=== PATIENT | female | born 1980 | race Hispanic/Latino ===

== ENCOUNTER 2021-03-11 11:40 | Emergency (ER) | payer OTHER ==
[~2021-03-11] VITALS: Ht 152.4 cm; Wt 59.0 kg
[2021-03-11 11:43] VITALS: BP 108/56
[2021-03-11 13:10] LABS: BASOPHILS % (AUTO) 0.3 % (0.0-5.0); EOSINOPHILS % (AUTO) 0.1 % (0.0-8.0); HEMATOCRIT 40.4 % (36-48); LYMPHOCYTES % (AUTO) 8.2 % (21.0-51.0); MEAN CORPUSCULAR HEMOGLOBIN 27.9 pg (27.0-33.0); MEAN CORPUSCULAR HGB CONC 32.4 g/dL (32.0-36.0); MONOCYTES % (AUTO) 2.3 % (3.0-13.0); NEUTROPHILS % (AUTO) 88.7 % (40.0-77.0); PLATELET COUNT (AUTO) 364 K/uL (130-400); RED CELL DISTRIBUTION WIDTH 13.3 % (11.0-15.5); WHITE BLOOD COUNT (AUTO) 16.3 K/uL (4.8-10.8)
[2021-03-11 13:19] LABS: CREATININE 0.8 mg/dL (0.5-1.5); POTASSIUM 3.4 mmol/L (3.5-5.1)
[2021-03-11 13:23] LABS: ALBUMIN 3.8 g/dL (3.5-5.0); APPEARANCE,URINE CLOUDY (CLEAR); BILIRUBIN,TOTAL 0.2 mg/dL (0.2-1.0); BILIRUBIN,URINE NEGATIVE (NEGATIVE); COLOR,URINE YELLOW (YELLOW); GLUCOSE, URINE (UA) NEGATIVE (NEGATIVE); KETONES,URINE NEGATIVE (NEGATIVE); LEUKOCYTE ESTERASE ,URINE TRACE (NEGATIVE); NITRATE,URINE NEGATIVE (NEGATIVE); OCCULT BLOOD,URINE LARGE (NEGATIVE); PROTEIN,URINE 30 mg/dL (NEGATIVE); TOTAL PROTEIN, SERUM 7.9 g/dL (6.0-8.3); UROBILINOGEN,URINE 0.2 mg/dL (0.2-1.0)
[2021-03-11 13:26] LABS: AMORPHOUS SEDIMENT,UR Moderate /LPF (None Seen); BACTERIA,URINE Rare /HPF (None Seen); MUCUS,URINE Few LPF (None Seen); SQUAMOUS EPITHELIAL CELL,UR Rare /HPF (0-2); WBC,URINE 0-1 /HPF (0-1)
[2021-03-11] MEDS ORDERED: 0.9%NACL 1000ML 1,000 ML IV ONE (13:30)
[2021-03-11] MEDS ORDERED: LIDOCAINE HCL 2% VISCOUS 15 ML UDCUP ONE (13:46)
[2021-03-11] MEDS ORDERED: FAMOTIDINE 20MG TAB ONE (13:46)
[2021-03-11] MEDS ORDERED: MAG/ALUM/SIMETH 30 ML UDCUP ONE (13:46)
[2021-03-11] MEDS ORDERED: ONDANSETRON ODT 4MG TAB ONE (13:47)
[2021-03-11] MEDS ORDERED: DICYCLOMINE HCL 10 MG/5 ML ML PO ONE ×2 (13:47→15:00)
[2021-03-11] MEDS ORDERED: MORPHINE 4 MG SYG ONE (13:47)
[2021-03-11] MEDS ORDERED: CEFTRIAXONE 1G VIAL ONE (13:47)
[2021-03-11 14:00] VITALS: BP 122/65
[2021-03-11] MEDS ORDERED: DICY20TA2 PO (14:49)
[2021-03-11] MEDS ORDERED: CEPH500B PO (14:49)
[2021-03-11] MEDS ORDERED: FAMO20TA8 PO (14:49)
[2021-03-11] MEDS ORDERED: FAMOTIDINE 20MG TAB PO ONE (15:00)
[2021-03-11] MEDS ORDERED: MORPHINE 4 MG SYG IVP ONE (15:00)
[2021-03-11] MEDS ORDERED: LIDOCAINE HCL 2% VISCOUS 15 ML UDCUP PO ONE (15:00)
[2021-03-11] MEDS ORDERED: ONDANSETRON 4MG TABLET PO ONE (15:00)
[2021-03-11] MEDS ORDERED: CEFTRIAXONE 1G VIAL IVP ONE (15:00)
[2021-03-11 15:31] VITALS: BP 120/62
== END 2021-03-11 15:27 | disposition home or self-care (01) ==
LOC: EDH 11:40
DX: N39.0 Urinary tract infection, site not specified (principal); K21.9 Gastro-esophageal reflux disease without esophagitis; Z79.899 Other long term (current) drug therapy
CPT/HCPCS: 36415; 80053; 81001; 81025; 82150; 83690; 85025; 96361; 96374; 96375; J0696; J2270; J7030